=== PATIENT | male | born 1950 | race Caucasian/White ===

== ENCOUNTER 2020-12-08 05:41 | Day surgery (SDC) | payer MEDICARE, OTHER ==
[~2020-12-08] VITALS: Ht 165.1 cm; Wt 75.0 kg
[2020-12-08] MEDS ORDERED: LIDOCAINE 2% 30 ML JELLY TP ONE (05:42)
[2020-12-08] MEDS ORDERED: BENZOCAINE 20% 50 MCG/SPRAY 57 GM TP ONE (05:42)
[2020-12-08] MEDS ORDERED: ALBUTEROL SULFATE 2.5 MG/0.5 ML NEB SOLUTION NEB ONE (05:42)
[2020-12-08] MEDS ORDERED: SODIUM CHLORIDE 0.9% 1,000 ML ONE (07:31)
[2020-12-08 07:42] LABS: COVID AG,FIA SOURCE NASOPHARYNGEAL
[2020-12-08] MEDS ORDERED: FentaNYL CITRATE PF 100 MCG/2 ML VIAL ONE (08:20)
[2020-12-08] MEDS ORDERED: MIDAZOLAM HCL 5 MG/ML VIAL ONE (08:20)
[2020-12-08 08:47] LABS: GLUCOMETER DEV NAME(LOC) SDS.; GLUCOSE,POINT OF CARE 104 MG/DL (70-110)
[2020-12-08] MEDS ORDERED: SODIUM CHLORIDE 0.9% 1,000 ML IV ONE (09:00)
[2020-12-08] MEDS ORDERED: MethylPREDNISolone SOD SUCC 125 MG/2 ML VIAL IVP ONE (09:30)
[2020-12-08] MEDS ORDERED: MethylPREDNISolone SOD SUCC 125 MG/2 ML VIAL ONE (09:33)
[2020-12-08] MEDS ORDERED: ONDANSETRON HCL 4 MG/2 ML VIAL ONE (10:08)
[2020-12-08] MEDS ORDERED: ONDANSETRON HCL 4 MG/2 ML VIAL IVP ONE (10:30)
[2020-12-08 10:34] LABS: GLUCOMETER DEV NAME(LOC) SDS.; GLUCOSE,POINT OF CARE 122 MG/DL (70-110)
[2020-12-08] MEDS ORDERED: OXYGEN THERAPY IH SCH (20:00)
== END 2020-12-08 11:45 | disposition home or self-care (01) ==
LOC: SURGERY 05:41
PROVIDERS: ATTEND Internal Medicine Critical Care Medicine
DX: J38.4 Edema of larynx (principal); B37.0 Candidal stomatitis; I10 Essential (primary) hypertension; Z79.899 Other long term (current) drug therapy; Z98.890 Other specified postprocedural states
CPT/HCPCS: 31623; 31624; 71045; 82962; 87015; 87070; 87101; 87205; 87206; 87220; 87426; 88108; 88184; 88185; 88312; C9803; J2250; J2405; J2930; J3010; J7030; J7613

== ENCOUNTER 2022-02-01 06:47 | Day surgery (SDC) | payer MEDICARE, OTHER ==
[~2022-02-01] VITALS: Ht 165.1 cm; Wt 75.0 kg
[~2022-02-01 06:47] MED LIST: ALBU6.7H14 IH; ASCO500T20 PO; BUDE10.2 IH; CHOL500013 PO; DOXY-469 PO; EZET10TA57 PO; FLUT16SP NASAL; GABA-1181 PO; LISI40TA9 PO; MONT-40 PO; PRED-729 PO; SODIUM CHLORIDE 0.9% 1,000 ML ONE
[2022-02-01] MEDS ORDERED: BENZOCAINE 20% 50 MCG/SPRAY 57 GM TP ONE (06:48)
[2022-02-01] MEDS ORDERED: LIDOCAINE 2% 11 ML JELLY TP ONE (06:48)
[2022-02-01] MEDS ORDERED: LIDOCAINE 4% 50 ML SOLUTION TP ONE (06:48)
[2022-02-01] MEDS ORDERED: SODIUM CHLORIDE 0.9% 1,000 ML IV ONE (07:00)
[2022-02-01 07:09] LABS: COVID AG,FIA SOURCE NASOPHARYNGEAL
[2022-02-01] MEDS ORDERED: MIDAZOLAM HCL 2 MG/2 ML VIAL ONE (08:00)
[2022-02-01] MEDS ORDERED: FentaNYL CITRATE PF 100 MCG/2 ML VIAL ONE (08:01)
[2022-02-01] MEDS ORDERED: MethylPREDNISolone SOD SUCC 125 MG/2 ML VIAL IVP ONE (09:45)
[2022-02-01] MEDS ORDERED: MethylPREDNISolone SOD SUCC 125 MG/2 ML VIAL ONE (10:05)
[2022-02-01] MEDS ORDERED: OXYGEN THERAPY IH SCH (20:00)
== END 2022-02-01 12:15 | disposition home or self-care (01) ==
LOC: SURGERY 06:47
PROVIDERS: ATTEND Internal Medicine Critical Care Medicine
DX: J38.4 Edema of larynx (principal); B37.0 Candidal stomatitis; I10 Essential (primary) hypertension; E78.00 Pure hypercholesterolemia, unspecified; Z79.899 Other long term (current) drug therapy; Z20.822 Contact with and (suspected) exposure to COVID-19; Z98.890 Other specified postprocedural states
CPT/HCPCS: 31623; 88112; 87101; 87220; 87070; 88305; 31624; 71045; 87015; 87426; 87206; 93005; J3010; J2250; J2930; Q9967; J7030; C9803; Z7610

== ENCOUNTER 2023-03-25 06:28 | Day surgery (SDC) | payer MEDICARE, OTHER ==
[~2023-03-25] VITALS: Ht 165.1 cm; Wt 75.0 kg
[~2023-03-25 06:28] MED LIST changes: -SODIUM CHLORIDE 0.9% 1,000 ML ONE
[2023-03-25] MEDS ORDERED: LIDOCAINE 2% 11 ML JELLY TP ONE (07:00)
[2023-03-25] MEDS ORDERED: BENZOCAINE 20% 50 MCG/SPRAY 57 GM TP ONE (07:00)
[2023-03-25] MEDS ORDERED: ALBUTEROL SULFATE 2.5 MG/0.5 ML NEB SOLUTION NEB ONE (07:00)
[2023-03-25] MEDS ORDERED: LIDOCAINE 4% 50 ML SOLUTION TP ONE (07:00)
[2023-03-25] MEDS ORDERED: METO-558 PO (07:48)
[2023-03-25] MEDS ORDERED: AMLO-257 PO (07:48)
[2023-03-25] MEDS ORDERED: SODIUM CHLORIDE 0.9% 1,000 ML ONE (07:48)
[2023-03-25] MEDS ORDERED: TAMS0.4C94 PO (07:48)
[2023-03-25] MEDS ORDERED: ATOR40TA28 PO (07:48)
[2023-03-25] MEDS ORDERED: ASPI-1450 PO (07:48)
[2023-03-25] MEDS ORDERED: OMEP20 PO (07:48)
[2023-03-25] MEDS ORDERED: CLOP75TA60 PO (07:49)
[2023-03-25] MEDS ORDERED: MONT-35 PO (07:49)
[2023-03-25] MEDS ORDERED: MIDAZOLAM HCL 2 MG/2 ML VIAL ONE (08:12)
[2023-03-25] MEDS ORDERED: FentaNYL CITRATE PF 100 MCG/2 ML VIAL ONE (08:12)
[2023-03-25] MEDS: SODIUM CHLORIDE 0.9% 1,000 ML IV ONE (08:35)
[2023-03-25 10:00] VITALS: PULSE 63; RESP 17; O2SAT 100
[2023-03-25] MEDS: MethylPREDNISolone SOD SUCC 125 MG/2 ML VIAL IVP ONE (10:20)
== END 2023-03-25 12:35 | disposition home or self-care (01) ==
LOC: SURGERY 06:28
PROVIDERS: ATTEND Internal Medicine Critical Care Medicine
DX: J38.4 Edema of larynx (principal); B37.0 Candidal stomatitis; I10 Essential (primary) hypertension; J45.909 Unspecified asthma, uncomplicated; Z86.11 Personal history of tuberculosis
CPT/HCPCS: 31623; 88112; 87206; 87101; 87220; 87070; 88305; 31624; 94640; 71045; 87015; J3010; J2250; J2930; Q9967; J7030; J7613; Z7610